=== PATIENT | male | born 1940 | race African-American/Black ===

== ENCOUNTER 2017-02-08 12:14 | Day surgery (SDC) | payer MEDICARE ==
[2017-01-31 14:55] LABS: HEMATOCRIT 35.2 % (40.0-51.0)
[2017-01-31 15:11] LABS: BUN (BLOOD UREA NITROGEN) 15 MG/DL (6-23); CALCIUM, SERUM 8.9 MG/DL (8.5-10.4); CHLORIDE, SERUM 106 MMOL/L (96-112); CO2 (CARBON DIOXIDE) 32 MMOL/L (24-34); CREATININE 1.06 MG/DL (0.70-1.30); GFR AFRICAN AMERICAN 79 ML/MIN (>=60); GFR NON AFRICAN AMERICAN 68 ML/MIN (>=60); GLUCOSE, SERUM 111 MG/DL (60-99); POTASSIUM, SERUM 4.1 MMOL/L (3.5-5.3); SODIUM, SERUM 146 MMOL/L (135-148)
--- NOTE | ~2017-02-08 | OP ---
Record Of Operation [facility] [address] [place]. [address] NAME: MAGGIE AVERY : 42 STATUS : [facility]#: [id number] AGE: 76 ADM/REG DATE : 02/08/17 MR#: [id number] REPORT SERV DATE: 02/13/17 DICTATED BY: GEORGIA MELTON DATE: 02/12/17 REPORT STATUS : Draft TRANSCRIBED BY: MODL DATE: 02/12/17 DATE OF PROCEDURE: 02/08/2017 SURGEON: Georgia Melton MD. RN RESEARCH: None. PREPROCEDURE DIAGNOSIS: Right common femoral artery stenosis. POSTPROCEDURE DIAGNOSIS: Right common femoral artery stenosis. PROCEDURE PERFORMED: 1. Ultrasound access, left common femoral artery. 2. Aortogram. 3. First order catheterization of the external iliac artery. ANESTHETIC: With MAC and local. SPECIMENS: None. ESTIMATED BLOOD LOSS: Minimal. COMPLICATIONS: None. INDICATIONS: Maggie Avery is 76 years old with recently repaired right popliteal aneurysm with an antegrade approach in the right groin. He came in for followup with ultrasound evaluation that showed high velocities in the right common femoral artery and distal external iliac artery. He was offered arteriogram. Risks, benefits, and alternatives were discussed. He understood and wished to proceed. OPERATIVE COURSE: The patient was brought to the operating, placed in the supine position on the operating room table. The patient had MAC anesthetic without complications. Bilateral groins were prepped and draped in sterile fashion. A time-out was performed to identify the correct patient, procedure, and site. We began by using ultrasound to identify the left common femoral artery. It was patent with mild disease. We anesthetized the skin and accessed the artery under ultrasound guidance. A copy of this picture was placed in the chart for review. Once we had access, we passed a wire into the abdominal aorta. The needle was removed. We placed a 5-Macedonian sheath. Over the wire, we passed the UF catheter, placed at the L1 vertebral level, performed aortography demonstrating patency of the aortoiliac segment without flow-limiting stenosis in the aorta, common iliac arteries bilaterally, or left external iliac artery. We used a wire and catheter to cannulate the right common iliac artery and passed a wire and catheter down to the external iliac artery. We then performed several views of the distal right iliac and common femoral artery. 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 We gave IV heparin and allowed adequate time for circulation. We sized up to a 6-Macedonian sheath for added support. We then used a series of wires and catheters to try and cross this lesion [facility] Of [place] [address] [place]. [address] NAME: MAGGIE AVERY : 42 STATUS : [facility] PAT#: [id number] AGE: 76 ADM/REG DATE : 02/08/17 MR#: [id number] REPORT SERV DATE: 02/13/17 DICTATED BY: GEORGIA MELTON DATE: 02/12/17 REPORT STATUS : Draft TRANSCRIBED BY: MODL DATE: 02/12/17 from above. This was ultimately unsuccessful with all the maneuvers that we performed. After about half an hour of work, we aborted the procedure. The sheath was wired out and brought back to the left side of the patient. A left common femoral arteriogram was then performed identifying good location of the sheath and good size of the artery. A closure device was placed with good hemostasis with no complications. The patient tolerated the procedure well. He was awakened and transferred to recovery in stable condition. SAMIA/YOLIE Georgia Melton MD / [id number] CC: MD Shameka Edwards M.D.
[~2017-02-08 12:14] MED LIST: ASAB PO; DILTIAZEM ER90 MG PO; FLOMAX4 PO; IMOD PO; KLOR-CON 1010 MEQ PO; LIPITOR20 PO; LOP25 PO; LOP50 PO; NAMENDA10 MG PO; NEUR400 PO; NEUR600 PO; NORV5 PO; PLAVIX PO; PRIN5 PO; PROTONIX PO; ULTRAM50 PO; ZOFRAN4 PO; ZOL50 PO; ZOLOFT25 MG PO; ZYP2 PO; ZYP5 PO
== END 2017-02-09 00:30 | disposition home or self-care (01) ==
LOC: SDC 12:14 → SSU1 20:37
PROVIDERS: Student in an Organized Health Care Education/Training Program
PROC: 04HH3DZ Insertion of Intraluminal Device into Right External Iliac Artery, Percutaneous Approach (ICD-10-PCS; principal; 2017-02-08 13:45)
DX: I70.211 Atherosclerosis of native arteries of extremities with intermittent claudication, right leg (principal); E11.22 Type 2 diabetes mellitus with diabetic chronic kidney disease; E11.51 Type 2 diabetes mellitus with diabetic peripheral angiopathy without gangrene; I13.2 Hypertensive heart and chronic kidney disease with heart failure and with stage 5 chronic kidney disease, or end stage renal disease; I50.9 Heart failure, unspecified; N18.6 End stage renal disease; Z87.891 Personal history of nicotine dependence; Z79.82 Long term (current) use of aspirin; Z79.899 Other long term (current) drug therapy; Z98.890 Other specified postprocedural states
CPT/HCPCS: 36246; 75625; 75710; 76937; 80048; 85014; 85018; 93005; A9270-GY; C1769; C1894; J2270; J2370; J3010; Q9966

== ENCOUNTER 2017-02-14 17:07 | Inpatient (IN) | payer MEDICARE ==
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
[2017-02-14 16:39] LABS: BASOPHILS 0.1 %; BASOPHILS ABSOLUTE 0.02 10/3/uL (0.0-0.16); EOSINOPHILS 0.1 %; EOSINOPHILS ABSOLUTE 0.02 10/3/uL (0.0-0.53); HEMATOCRIT 34.1 % (40.0-51.0); HEMOGLOBIN 10.8 g/dL (13.6-17.8); IMMATURE GRANULOCYTES 0.3 %; IMMATURE GRANULOCYTES ABSOLUTE 0.05 10/3/uL (0.0-0.11); LYMPHOCYTES 8.5 %; LYMPHOCYTES ABSOLUTE 1.28 10/3/uL (0.67-4.30); MEAN CORPUS HGB CONC 31.7 g/dL (32.0-36.0); MEAN CORPUSCULAR HEMOGLOB 24.3 pg (26.0-34.0); MEAN CORPUSCULAR VOLUME 76.8 fL (80-100); MEAN PLATELET VOLUME 10.5 fL (9.2-13.0); MONOCYTES 6.8 %; MONOCYTES ABSOLUTE 1.03 10/3/uL (0.21-1.20); NEUTROPHILS 84.2 %; NEUTROPHILS ABSOLUTE 12.72 10/3/uL (2.02-8.40); PLATELET COUNT 175 10/3/uL (150-400); RBC DISTRIBUTION WIDTH 14.8 % (12.0-16.0); RED CELL COUNT 4.44 10/6/uL (4.7-6.1)
[2017-02-14 16:40] LABS: WHITE BLOOD CELLS 15.1 10/3/uL (4.5-10.5)
[2017-02-14 16:45] LABS: MANUAL DIFF NO %
[2017-02-14 16:53] LABS: A/G RATIO 0.9 (0.7-1.9); ALBUMIN 3.8 G/DL (3.5-5.0); ALKALINE PHOSPHATASE 95 U/L (45-117); BUN (BLOOD UREA NITROGEN) 16 MG/DL (6-23); CALCIUM, SERUM 8.9 MG/DL (8.5-10.4); CHLORIDE, SERUM 106 MMOL/L (96-112); CO2 (CARBON DIOXIDE) 28 MMOL/L (24-34); GFR AFRICAN AMERICAN 48 ML/MIN (>=60); GFR NON AFRICAN AMERICAN 42 ML/MIN (>=60); GLOBULIN 4.4 G/DL (2.5-4.1); GLUCOSE, SERUM 127 MG/DL (60-99); SGOT(AST) 15 U/L (5-40); SGPT(ALT) 14 U/L (5-65); SODIUM, SERUM 143 MMOL/L (135-148); TOTAL BILIRUBIN 1.7 MG/DL (0-1.2); TOTAL PROTEIN 8.2 G/DL (6.0-8.5)
[2017-02-14] MEDS ORDERED: GERI-LANTA PO (19:31)
[2017-02-14] MEDS ORDERED: FLOMAX4 PO (19:31)
[2017-02-14] MEDS ORDERED: LOP25 PO (19:31)
[2017-02-14] MEDS ORDERED: NAMENDA10 MG PO (19:31)
[2017-02-14] MEDS ORDERED: PLAVIX PO (19:32)
[2017-02-14] MEDS ORDERED: LIPITOR20 PO (19:33)
[2017-02-14] MEDS ORDERED: K-TABS10 MEQ PO (19:33)
[2017-02-14] MEDS ORDERED: ASAB PO (19:33)
[2017-02-14] MEDS ORDERED: ZOFRAN4 PO (19:33)
[2017-02-14] MEDS ORDERED: PERI-COLACE1 TAB PO (19:34)
[2017-02-14] MEDS ORDERED: PROTONIX20 MG PO (19:34)
[2017-02-14] MEDS ORDERED: TEARS PURE OPH (19:35)
[2017-02-14] MEDS ORDERED: ZYP2 PO (19:35)
[2017-02-14] MEDS ORDERED: MELA3 PO (19:35)
[2017-02-14 20:25] LABS: ASCORBIC ACID (UR NOT ORDER) NEG (NEG); BILIRUBIN, URINE NEGATIVE (NEG); KETONE, URINE NEGATIVE (NEG)
[2017-02-15 05:11] LABS: BASOPHILS 0.1 %; BASOPHILS ABSOLUTE 0.02 10/3/uL (0.0-0.16); EOSINOPHILS 0.1 %; EOSINOPHILS ABSOLUTE 0.02 10/3/uL (0.0-0.53); HEMATOCRIT 32.6 % (40.0-51.0); HEMOGLOBIN 10.6 g/dL (13.6-17.8); IMMATURE GRANULOCYTES 0.4 %; IMMATURE GRANULOCYTES ABSOLUTE 0.06 10/3/uL (0.0-0.11); LYMPHOCYTES 10.8 %; LYMPHOCYTES ABSOLUTE 1.75 10/3/uL (0.67-4.30); MEAN CORPUS HGB CONC 32.5 g/dL (32.0-36.0); MEAN CORPUSCULAR HEMOGLOB 24.8 pg (26.0-34.0); MEAN CORPUSCULAR VOLUME 76.3 fL (80-100); MEAN PLATELET VOLUME 10.5 fL (9.2-13.0); MONOCYTES 6.4 %; MONOCYTES ABSOLUTE 1.04 10/3/uL (0.21-1.20); NEUTROPHILS 82.2 %; NEUTROPHILS ABSOLUTE 13.31 10/3/uL (2.02-8.40); PLATELET COUNT 142 10/3/uL (150-400); RBC DISTRIBUTION WIDTH 14.7 % (12.0-16.0); RED CELL COUNT 4.27 10/6/uL (4.7-6.1); WHITE BLOOD CELLS 16.2 10/3/uL (4.5-10.5)
[2017-02-15 05:13] LABS: MANUAL DIFF NO %
[2017-02-15 05:49] LABS: BUN (BLOOD UREA NITROGEN) 16 MG/DL (6-23); CALCIUM, SERUM 8.3 MG/DL (8.5-10.4); CHLORIDE, SERUM 106 MMOL/L (96-112); CO2 (CARBON DIOXIDE) 26 MMOL/L (24-34); CREATININE 1.53 MG/DL (0.70-1.30); GFR AFRICAN AMERICAN 51 ML/MIN (>=60); GFR NON AFRICAN AMERICAN 44 ML/MIN (>=60); GLUCOSE, SERUM 115 MG/DL (60-99); POTASSIUM, SERUM 3.7 MMOL/L (3.5-5.3); SODIUM, SERUM 143 MMOL/L (135-148)
[2017-02-15 06:39] LABS: PROCALCITONIN 2.56 ng/mL (<0.5)
[2017-02-16 04:18] LABS: BASOPHILS 0.2 %; BASOPHILS ABSOLUTE 0.02 10/3/uL (0.0-0.16); EOSINOPHILS 3.8 %; EOSINOPHILS ABSOLUTE 0.43 10/3/uL (0.0-0.53); HEMATOCRIT 29.7 % (40.0-51.0); HEMOGLOBIN 9.6 g/dL (13.6-17.8); IMMATURE GRANULOCYTES 0.2 %; IMMATURE GRANULOCYTES ABSOLUTE 0.02 10/3/uL (0.0-0.11); LYMPHOCYTES 13.1 %; LYMPHOCYTES ABSOLUTE 1.48 10/3/uL (0.67-4.30); MEAN CORPUS HGB CONC 32.3 g/dL (32.0-36.0); MEAN CORPUSCULAR HEMOGLOB 24.6 pg (26.0-34.0); MONOCYTES 5.3 %; NEUTROPHILS 77.4 %; NEUTROPHILS ABSOLUTE 8.75 10/3/uL (2.02-8.40); PLATELET COUNT 141 10/3/uL (150-400); RBC DISTRIBUTION WIDTH 14.5 % (12.0-16.0); RED CELL COUNT 3.91 10/6/uL (4.7-6.1); WHITE BLOOD CELLS 11.3 10/3/uL (4.5-10.5)
[2017-02-16 04:19] LABS: MANUAL DIFF NO %
[2017-02-16 04:40] LABS: CALCIUM, SERUM 8.1 MG/DL (8.5-10.4); CHLORIDE, SERUM 107 MMOL/L (96-112); CO2 (CARBON DIOXIDE) 26 MMOL/L (24-34); GFR AFRICAN AMERICAN 45 ML/MIN (>=60); GFR NON AFRICAN AMERICAN 39 ML/MIN (>=60); GLUCOSE, SERUM 100 MG/DL (60-99); POTASSIUM, SERUM 3.6 MMOL/L (3.5-5.3); SGOT(AST) 20 U/L (5-40); SGPT(ALT) 11 U/L (5-65); SODIUM, SERUM 143 MMOL/L (135-148); TOTAL PROTEIN 6.8 G/DL (6.0-8.5)
[2017-02-16 04:42] LABS: A/G RATIO 0.7 (0.7-1.9); ALBUMIN 2.8 G/DL (3.5-5.0); ALKALINE PHOSPHATASE 69 U/L (45-117); BUN (BLOOD UREA NITROGEN) 21 MG/DL (6-23)
[2017-02-17 06:01] LABS: BASOPHILS 0.3 %; BASOPHILS ABSOLUTE 0.02 10/3/uL (0.0-0.16); EOSINOPHILS 5.7 %; EOSINOPHILS ABSOLUTE 0.44 10/3/uL (0.0-0.53); HEMATOCRIT 30.2 % (40.0-51.0); HEMOGLOBIN 9.9 g/dL (13.6-17.8); IMMATURE GRANULOCYTES 0.1 %; IMMATURE GRANULOCYTES ABSOLUTE 0.01 10/3/uL (0.0-0.11); LYMPHOCYTES 15.8 %; LYMPHOCYTES ABSOLUTE 1.22 10/3/uL (0.67-4.30); MEAN CORPUS HGB CONC 32.8 g/dL (32.0-36.0); MEAN CORPUSCULAR HEMOGLOB 24.4 pg (26.0-34.0); MEAN CORPUSCULAR VOLUME 74.6 fL (80-100); MEAN PLATELET VOLUME 10.7 fL (9.2-13.0); MONOCYTES 7.5 %; MONOCYTES ABSOLUTE 0.58 10/3/uL (0.21-1.20); NEUTROPHILS 70.6 %; NEUTROPHILS ABSOLUTE 5.47 10/3/uL (2.02-8.40); PLATELET COUNT 173 10/3/uL (150-400); RBC DISTRIBUTION WIDTH 14.2 % (12.0-16.0); RED CELL COUNT 4.05 10/6/uL (4.7-6.1); WHITE BLOOD CELLS 7.7 10/3/uL (4.5-10.5)
[2017-02-17 06:05] LABS: MANUAL DIFF NO %
[2017-02-17 06:06] LABS: % IRON SAT 23 % (20-50); CALCIUM, SERUM 8.5 MG/DL (8.5-10.4); CHLORIDE, SERUM 108 MMOL/L (96-112); CO2 (CARBON DIOXIDE) 24 MMOL/L (24-34); FERRITIN 146 NG/ML (26-388); GFR AFRICAN AMERICAN 69 ML/MIN (>=60); GFR NON AFRICAN AMERICAN 59 ML/MIN (>=60); GLUCOSE, SERUM 96 MG/DL (60-99); IRON BINDING CAPACITY 168 MCG/DL (250-450); IRON, SERUM 38 MCG/DL (35-150); PHOSPHORUS, SERUM 2.6 MG/DL (2.5-4.5); POTASSIUM, SERUM 3.8 MMOL/L (3.5-5.3); SODIUM, SERUM 142 MMOL/L (135-148)
[2017-02-17 06:09] LABS: BUN (BLOOD UREA NITROGEN) 16 MG/DL (6-23); CREATININE 1.19 MG/DL (0.70-1.30)
[2017-02-17 06:44] LABS: ANISOCYTOSIS 1+ (5-10/OIF) (0-5/OIF); HELMET CELLS OCC (0-2/OIF); HYPOCHROMIA 1+ (3-10/OIF) (0-2/OIF); MICROCYTES 1+ (5-10/OIF) (0-5/OIF); PLATELET ESTIMATE ADQ (ADEQUATE); POLYCHROMASIA 1+ (2-5/OIF) (0-1/OIF); TARGET CELLS OCC (1-2/OIF) (0-1/OIF); TEARDROP SHAPED RBCS OCC (0-2/OIF)
[2017-02-18 05:34] LABS: BASOPHILS 0.3 %; BASOPHILS ABSOLUTE 0.02 10/3/uL (0.0-0.16); EOSINOPHILS 5.6 %; EOSINOPHILS ABSOLUTE 0.39 10/3/uL (0.0-0.53); HEMATOCRIT 31.5 % (40.0-51.0); HEMOGLOBIN 10.1 g/dL (13.6-17.8); IMMATURE GRANULOCYTES 0.3 %; IMMATURE GRANULOCYTES ABSOLUTE 0.02 10/3/uL (0.0-0.11); LYMPHOCYTES 10.7 %; LYMPHOCYTES ABSOLUTE 0.74 10/3/uL (0.67-4.30); MEAN CORPUS HGB CONC 32.1 g/dL (32.0-36.0); MEAN PLATELET VOLUME 9.5 fL (9.2-13.0); MONOCYTES 12.4 %; MONOCYTES ABSOLUTE 0.86 10/3/uL (0.21-1.20); NEUTROPHILS 70.7 %; NEUTROPHILS ABSOLUTE 4.89 10/3/uL (2.02-8.40); PLATELET COUNT 193 10/3/uL (150-400); RBC DISTRIBUTION WIDTH 14.2 % (12.0-16.0); WHITE BLOOD CELLS 6.9 10/3/uL (4.5-10.5)
[2017-02-18 05:38] LABS: MANUAL DIFF NO %
[2017-02-18 05:47] LABS: BUN (BLOOD UREA NITROGEN) 13 MG/DL (6-23); CALCIUM, SERUM 9.1 MG/DL (8.5-10.4); CHLORIDE, SERUM 107 MMOL/L (96-112); CO2 (CARBON DIOXIDE) 26 MMOL/L (24-34); CREATININE 1.18 MG/DL (0.70-1.30); GFR AFRICAN AMERICAN 70 ML/MIN (>=60); GFR NON AFRICAN AMERICAN 60 ML/MIN (>=60); GLUCOSE, SERUM 106 MG/DL (60-99); POTASSIUM, SERUM 3.6 MMOL/L (3.5-5.3); SODIUM, SERUM 143 MMOL/L (135-148)
[2017-02-18] MEDS ORDERED: LEVAQUIN750 MG PO (10:03)
== END 2017-02-18 17:17 | disposition home or self-care (01) | DRG 690 ==
LOC: 7NO 17:07
PROVIDERS: Family Medicine
DX: N39.0 Urinary tract infection, site not specified (principal); N17.9 Acute kidney failure, unspecified; F05 Delirium due to known physiological condition; I50.32 Chronic diastolic (congestive) heart failure; I13.0 Hypertensive heart and chronic kidney disease with heart failure and stage 1 through stage 4 chronic kidney disease, or unspecified chronic kidney disease; F03.91 Unspecified dementia, unspecified severity, with behavioral disturbance; J44.9 Chronic obstructive pulmonary disease, unspecified; I25.10 Atherosclerotic heart disease of native coronary artery without angina pectoris; I73.9 Peripheral vascular disease, unspecified; B96.1 Klebsiella pneumoniae [K. pneumoniae] as the cause of diseases classified elsewhere; N18.3 Chronic kidney disease, stage 3 (moderate); E11.22 Type 2 diabetes mellitus with diabetic chronic kidney disease
CPT/HCPCS: 71010; 72192; 80048; 80053; 80069; 81001; 82728; 82962; 83540; 83550; 83605; 83880; 84145; 85025; 87040; 87077; 87086; 87186; 93005; A9270-GY; J0360; J1956; J2543